=== PATIENT | male | born 2000 | race Caucasian/White ===

== ENCOUNTER 2024-05-18 16:16 | Emergency (ER) | payer OTHER ==
[~2024-05-18] VITALS: Ht 177.8 cm; Wt 72.8 kg
[2024-05-19] MEDS: KETOROLAC 30 MG/ML 1ML VIAL IV ONE (02:03)
[2024-05-19] MEDS: methylPREDNISolone 125MG 2ML VIAL IV ONE (02:03)
[2024-05-19] MEDS ORDERED: PRED20TA PO (03:53)
[2024-05-19] MEDS: methocarbamoL 500 MG TAB PO ONE (04:15)
[2024-05-19 04:20] VITALS: BP 115/61; TEMP 98.2; O2SAT 98
== END 2024-05-19 04:22 | disposition home or self-care (01) ==
LOC: M ED 16:16
DX: M51.26 Other intervertebral disc displacement, lumbar region (principal); S39.012A Strain of muscle, fascia and tendon of lower back, initial encounter; Y92.9 Unspecified place or not applicable; Y93.9 Activity, unspecified; Y99.9 Unspecified external cause status; Z79.52 Long term (current) use of systemic steroids
CPT/HCPCS: 72131; 96374; 99284; J1885; J2919